=== PATIENT | male | born 1975 | race Caucasian/White ===

== ENCOUNTER 2018-07-26 16:51 | Observation (INO) ==
[2018-07-26] MEDS ORDERED: Bisacodyl 10 MG Supp RECTAL PRN (19:07)
[2018-07-26] MEDS ORDERED: Acetaminophen 325 MG Tablet PO PRN (19:07)
[2018-07-26] MEDS ORDERED: Vancomycin Inj 1 GM/200 ML PIGGYBACK IV.SIG SCH (20:00)
[2018-07-26 23:26] LABS: Bilirubin,Urine Negative (Negative); Clarity,Urine Clear (Clear); Color,Urine Yellow (Yellw/Straw); Glucose,Urine (UA) Negative (Negative); Leukocyte Esterase,Urine Negative (Negative); Nitrite,Urine Negative (Negative); Specific Gravity,Urine 1.015 (1.002-1.035); Urobilinogen,Urine 0.2 mg/dL (Less than 2)
[2018-07-26 23:28] LABS: Hematocrit 23.8 % (39.0-51.0); Hemoglobin 8.6 gm/dL (13.0-17.0)
[2018-07-26 23:34] LABS: RBC,Urine 0-3 /hpf (0-3); Squamous Epithelial Cell,Urine 0-5 /hpf (0-5); WBC,Urine 0-5 /hpf (0-5)
[2018-07-26] MEDS: Sod Chloride 0.9% Inj 1,000 ML IV.CONT SCH (23:34)
[2018-07-27] MEDS: Piperacil/Tazo 4.5 GM Premix 4.5 GM/100 ML BAG IV.SIG SCH ×4 (00:15→20:03)
[2018-07-27] MEDS: Vancomycin Inj 1,000 MG in Sodium Chlor 0.9% Inj 250 ML IV.SIG SCH (01:02)
[2018-07-27 05:04] LABS: Baso # (Auto) 0.2 th/mm3 (0.0-0.2); Baso % (Auto) 1.7 % (0.0-2.0); Eos # (Auto) 0.2 th/mm3 (0.0-0.4); Eos % (Auto) 1.8 % (0.0-4.0); Hematocrit 22.1 % (39.0-51.0); Hemoglobin 7.9 gm/dL (13.0-17.0); Lymph # (Auto) 3.9 th/mm3 (1.0-4.8); Lymph % (Auto) 33.4 % (9.0-44.0); Mean Corpuscular HGB Conc 35.6 % (32.0-36.0); Mean Corpuscular Hemoglobin 31.8 pg (27.0-34.0); Mean Corpuscular Volume 89.1 fL (80.0-100.0); Mean Platelet Volume 8.5 fL (7.0-11.0); Mono # (Auto) 0.7 th/mm3 (0.0-0.9); Mono % (Auto) 5.8 % (0.0-8.0); Neut # (Auto) 6.6 th/mm3 (1.8-7.7); Neut % (Auto) 57.3 % (16.0-70.0); Platelet Count 216 th/mm3 (150-450); Red Blood Count 2.48 mil/mm3 (4.50-5.90); Red Cell Distribution Width 12.3 % (11.6-17.2); White Blood Count 11.6 th/mm3 (4.0-11.0)
[2018-07-27 05:17] LABS: Potassium 3.2 meq/L (3.5-5.1)
[2018-07-27 05:25] LABS: Calcium 7.3 mg/dL (8.5-10.1); Carbon Dioxide 30.8 meq/L (21.0-32.0); Magnesium 2.1 mg/dL (1.5-2.5)
[2018-07-27 05:37] LABS: Total Protein 5.3 g/dL (6.4-8.2)
[2018-07-27] MEDS: Sod Chloride 0.9% Inj 1,000 ML IV.CONT SCH ×2 (05:42→19:27)
--- NOTE | 2018-07-27 07:45 | P.HP ---
History of Present Illness Primary Care Physician: UNKNOWN Chief Complaint: Black stools History of Present Illness: This is a 43-year-old male patient with no known medical history who presented to the ED with complaints of black stools x3 episodes at home. Patient states that over the course of the weekend he noticed his bowel movements were dark in color black he also admitted to intermittent dizziness throughout the weekend as well. Denies any recent illness including fever, chills, cough, headache, abdominal pain, nausea, vomiting, diarrhea or dysuria. Denies any recent NSAID use. His appetite has been good. He does have a history of tobacco abuse, as well as his tox screen positive for opiates and cocaine. He states that this activity is social. Denies any IV drug abuse. Patient denies ever having a previous colonoscopy or EGD. Does not follow with the PCP. Does not take any medications at home. No drug allergies. No prior surgery. - Diagnosis (1) Upper GI bleed (2) GI bleed Inpatient Certification: I certify that the inpatient services were ordered in accordance with Medicare regulations governing the order. This includes certification that hospital inpatient services are reasonable and necessary and in the case of services not specified as inpatient-only under 42 CFR 419.22(n), that they are appropriately provided as inpatient services in accordance to with the 2-midnight benchmark under 43 CFR 412.3(e) Review of Systems All other systems reviewed negative except as stated in HPI [facility] - History History Provided By: Patient, Family Member - Medical History Medical History: Medical History (Last Reviewed 07/27/18 @ 08:54 by Adrianne De La Torre) Patient denies medical problems - Surgical History Surgical History: Surgical History (Last Reviewed 07/27/18 @ 08:54 by Adrianne De La Torre) No history of previous surgery - Family History Family History: Family History (Last Updated 07/27/18 @ 08:58 by Adrianne De La Torre) Other Family history in first degree relatives is unremarkable - Social History I have reviewed the patient's Social History: Yes - Tobacco History Second Hand Smoke Exposure: Yes Tobacco Use In Past 30 Days: Yes Smoking Status: Current every day smoker Tobacco Type: Cigarettes - Alcohol History How Often Do You Have a Drink Containing Alcohol: Never - Substance Use History Substance History: Past History - Immunization History Tetanus Immunization: Never Vaccinated Hx Influenza Vaccine This Season: Yes Medications and Allergies Active Medications: Active Medications Acetaminophen (Tylenol) 650 mg PO Q4H PRN PRN Reason: Temp > 100.4 Al Hydroxide/Mg Hydroxide (Milk Of Magnesia Liq) 30 ml PO Q12H PRN PRN Reason: Mild Constipation Bisacodyl (Dulcolax Supp) 10 mg RECTAL DAILY PRN PRN Reason: SEVERE CONSITIPATION Sodium Chloride (Ns Inj) 1,000 mls @ 100 mls/hr IV.CONT .Q10H [facility] Last Admin: 07/27/18 05:42 Dose: 100 mls/hr Piperacillin/Tazobactam/Dextrose (Zosyn 4.5 Gm Premix) 4.5 gm in 100 mls @ 200 mls/hr IV.SIG Q6H [facility] Last Infusion: 07/27/18 06:04 Dose: Infused Vancomycin HCl 1,000 mg/ (Sodium Chloride) 250 mls @ 250 mls/hr IV.SIG Q24H [facility] Last Infusion: 07/27/18 02:02 Dose: Infused Potassium Chloride (Kcl 20 Meq Premix Inj) 20 meq in 100 mls @ 50 mls/hr IV.SIG ONCE ONE Stop: 07/27/18 09:59 Sodium Chloride (Ns Inj) 250 mls @ 15 mls/hr IV.SIG ONCE MATT Stop: 07/28/18 00:39 Pantoprazole Sodium 80 mg/ (Sodium Chloride) 100 mls @ 10 mls/hr IV.CONT CONT MATT Lactulose (Lactulose Liq) 30 ml PO DAILY PRN PRN Reason: SEVERE CONSITIPATION Octreotide Acetate (Sandostatin Inj) 50 mcg IV.PUSH ONCE ONE Stop: 07/27/18 09:01 Ondansetron HCl (Zofran Inj) 4 mg IV.PUSH Q6H PRN PRN Reason: NAUSEA OR VOMITING Sennosides (Senokot) 17.2 mg PO Q12H PRN PRN Reason: Moderate Constipation Allergies Allergy/AdvReac Type Severity Reaction Status Date / Time No Known Allergies Allergy Verified 07/26/18 16:59 Home Medications Medication Instructions Recorded Confirmed Type No Known Home Medications 07/24/18 07/26/18 History Exam Vital signs: Vital Signs 07/26/18 19:07 07/26/18 19:15 07/26/18 23:39 Temperature Pulse Rate 66 90 Respiratory Rate 22 Blood Pressure Pulse Oximetry 95 10/08/18 00:00 07/27/18 00:42 07/27/18 04:00 Temperature 98.5 F 98.7 F Pulse Rate 79 77 Respiratory Rate 20 Blood Pressure 91/49 L 99/60 L Pulse Oximetry 91 L 91 L 94 L Intake & Output 07/26/18 07/27/18 07/27/18 18:59 06:59 18:59 Intake Total 1332 / 1332 Output Total 800 / 800 Balance 532 / 532 Weight 67.9 kg Intake: IV 1302 / 1302 NS Inj 1,000 ML @ 100 mls/hr IV 852 / 852 .CONT .Q10H [facility] Rx#:[id number] Zosyn 4.5 GM Premix 4.5 gm In 200 / 200 100 ml @ 200 mls/hr IV.SIG Q6H [facility] Rx#:[id number] Vancomycin Inj 1,000 MG In NS 250 / 250 Inj 250 ML @ 250 mls/hr IV.SIG Q24H [facility] Rx#:[id number] Oral 30 / 30 Output: Urine 800 / 800 Other: Weight On Admission 67.9 kg Narrative: GENERAL: Well-developed, well-nourished patient in [facility]. SKIN: Warm and dry. No rash. HEAD: Normocephalic. Atraumatic. EYES: Pupils equal and round. No scleral icterus. No injection or drainage. ENT: No nasal bleeding or discharge. Mucous membranes pink and moist. NECK: Supple. Trachea midline. CARDIOVASCULAR: Regular rate and rhythm. S1, S2 noted. No murmur appreciated. RESPIRATORY: No accessory muscle use. Clear to auscultation. Breath sounds equal bilaterally. GASTROINTESTINAL: Abdomen soft, non-tender, nondistended. Normoactive bowel sounds x4. MUSCULOSKELETAL: No obvious deformities. Extremities without clubbing, cyanosis , or edema. NEUROLOGICAL: Awake and alert. No obvious cranial nerve deficits. Motor grossly within normal limits. 5/5 muscle strength in bilateral upper and lower extremities. Normal speech. PSYCHIATRIC: Appropriate mood and affect; insight and judgment normal. Results - Labs CBC & Chem 7: 07/27/18 04:42 07/27/18 04:42 Labs: Laboratory Results - last 24 hr 07/26/18 07/26/18 07/26/18 23:20 23:20 23:20 CBC w Diff WBC RBC Hgb 8.6 L Hct 23.8 L MCV MCH MCHC RDW Plt Count MPV Neut % (Auto) Lymph % (Auto) [place] % (Auto) Eos % (Auto) Baso % (Auto) Neut # (Auto) Lymph # (Auto) [place] # (Auto) Eos # (Auto) Baso # (Auto) WBC Differential Differential Comment Sodium Potassium Chloride Carbon Dioxide Anion Gap BUN Creatinine Estimated GFR Random Glucose Lactic Acid 1.0 Calcium Prot Corrected Calcium Magnesium Total Protein Urine Color Yellow Urine Clarity Clear Urine pH 6.0 Ur Specific [place] 1.015 Urine Protein Negative Urine Glucose (UA) Negative Urine Ketones Negative Urine Occult Blood Negative Urine Nitrate Negative Urine Bilirubin Negative Urine Urobilinogen 0.2 Ur Leukocyte Esterase Negative Urine RBC 0-3 Urine WBC 0-5 Ur Squamous Epith Cells 0-5 Micro UA Comment Culture not ind Ur Microscopic Review Microscopic reviewed Urine Culture Comments Culture not ind 07/27/18 07/27/18 04:42 04:42 CBC w Diff Auto diff final WBC 11.6 H RBC 2.48 L Hgb 7.9 L Hct 22.1 L MCV 89.1 MCH 31.8 MCHC 35.6 RDW 12.3 Plt Count 216 MPV 8.5 Neut % (Auto) 57.3 Lymph % (Auto) 33.4 [place] % (Auto) 5.8 Eos % (Auto) 1.8 Baso % (Auto) 1.7 Neut # (Auto) 6.6 Lymph # (Auto) 3.9 [place] # (Auto) 0.7 Eos # (Auto) 0.2 Baso # (Auto) 0.2 WBC Differential . Differential Comment . Sodium 138 Potassium 3.2 L Chloride 98 Carbon Dioxide 30.8 Anion Gap 9 BUN 22 H Creatinine 1.00 Estimated GFR 82 L Random Glucose 95 Lactic Acid Calcium 7.3 L* D Prot Corrected Calcium 8.3 L Magnesium 2.1 Total Protein 5.3 L D Urine Color Urine Clarity Urine pH Ur Specific [place] Urine Protein Urine Glucose (UA) Urine Ketones Urine Occult Blood Urine Nitrate Urine Bilirubin Urine Urobilinogen Ur Leukocyte Esterase Urine RBC Urine WBC Ur Squamous Epith Cells Micro UA Comment Ur Microscopic Review Urine Culture Comments Caprini VTE Risk Assessment Caprini VTE Risk Assessment: No/Low Risk (score <= 1) Caprini Risk Assessment Model: Point Value = 1 Point Value = 2 Point Value = 3 Point Value = 5 Age 41-60 Minor surgery BMI > 25 kg/m2 Swollen legs Varicose veins or History of unexplained or recurrent spontaneous Oral contraceptives or hormone replacement Sepsis (< 1 month) Serious lung disease, including pneumonia (< 1 month) Abnormal pulmonary function Acute myocardial infarction Congestive heart failure (< 1 month) History of inflammatory bowel disease Medical patient at bed rest Age 61-74 Arthroscopic surgery Major open surgery (> 45 min) Laparoscopic surgery (> 45 min) Malignancy Confined to bed (> 72 hours) Immobilizing plaster cast Central venous access Age >= 75 History of VTE Family history of VTE Factor V Leiden Prothrombin [id number] Lupus anticoagulant Anticardiolipin antibodies Elevated serum homocysteine Heparin-induced thrombocytopenia Other congenital or acquired thrombophilia Stroke (< 1 month) Elective arthroplasty Hip, pelvis, or leg fracture Acute spinal cord injury (< 1 month) Prophylaxis Regimen: Total Risk Factor Score Risk Level Prophylaxis Regimen 0-1 Low Early ambulation 2 Moderate Order ONE of the following: *Sequential Compression Device (SCD) *Heparin 5000 units SQ BID 3-4 Higher Order ONE of the following medications: *Heparin 5000 units SQ TID *Enoxaparin/Lovenox 40 mg SQ daily (WT < 150 kg, CrCl > 30 mL/min) *Enoxaparin/Lovenox 30 mg SQ daily (WT < 150 kg, CrCl > 10-29 mL/min) *Enoxaparin/Lovenox 30 mg SQ BID (WT < 150 kg, CrCl > 30 mL/min) AND/OR *Sequential Compression Device (SCD) 5 or more Highest Order ONE of the following medications: *Heparin 5000 units SQ TID (Preferred with Epidurals) *Enoxaparin/Lovenox 40 mg SQ daily (WT < 150 kg, CrCl > 30 mL/min) *Enoxaparin/Lovenox 30 mg SQ daily (WT < 150 kg, CrCl > 10-29 mL/min) *Enoxaparin/Lovenox 30 mg SQ BID (WT < 150 kg, CrCl > 30 mL/min) AND *Sequential Compression Device (SCD) Assessment and Plan - Assessment (1) Upper GI bleed Code(s): K92.2 - Gastrointestinal hemorrhage, unspecified Status: Acute (2) GI bleed Code(s): K92.2 - Gastrointestinal hemorrhage, unspecified Status: Acute - Plan This is a 43-year-old male patient with: GI bleed -Patient reports black stools times 2 days. Admits to some intermittent dizziness which has resolved now. -Hemoccult positive in ED. No further bowel movement since yesterday morning. -Abdominal/pelvis CT reviewed and negative for any acute disease. -Gastroenterology consulted, spoke with him this morning, plan will be for EGD this afternoon. Keep NPO. Continue IVF. -Patient placed on Protonix drip. Octreotide x 50 mcg sq 1 given. -Monitor for any active bleeding. -Trend H&H. Dropped overnight. Will transfuse 1 unit PRBC this morning. SIRS -Patient presented with leukocytosis of 21,000, tachycardia with lactic acid 2.2. UA negative. CXR reviewed and negative for any acute disease. Blood cultures pending, follow. -Will continue on Zosyn and Vanco IV. Leukocytosis improved today. No fever overnight. -BP is labile. Was given 1 L NS bolus and continued on IVF overnight. Will continue to monitor. -Patient is asymptomatic and denies any complaints at home including dysuria, cough, or diarrhea. Hypokalemia: K 3.2 today. Replenish as ordered. Follow BMP. Tobacco abuse: Encouraged cessation. Nicotine patch. Substance abuse: Tox screen positive for opiates and cocaine. Encouraged cessation. DVT Prophylaxis: SCDs. Hold chemical prophylaxis secondary to GI bleed.
[2018-07-27] MEDS ORDERED: Sodium Chlor 0.9% Inj 250 ML IV.SIG SCH (08:00)
[2018-07-27] MEDS ORDERED: Potassium Chlor 20 mEq Premix 20 MEQ/100 ML PIGGYBACK IV.SIG ONE (08:00)
[2018-07-27] MEDS ORDERED: Octreotide Inj 50 MCG/ML Vial IV.PUSH ONE ×2 (08:00→09:00)
[2018-07-27 08:16] LABS: Albumin 2.6 g/dL (3.4-5.0)
[2018-07-27 08:21] LABS: Total Protein 5.2 g/dL (6.4-8.2)
[2018-07-27] MEDS ORDERED: Pantoprazole Inj 80 MG in Sodium Chlor 0.9% Inj 100 ML IV.CONT SCH (09:00)
[2018-07-27] MEDS ORDERED: Pantoprazole Inj 40 MG Vial IV.PUSH SCH (09:00)
[2018-07-27 11:25] LABS: Hematocrit 21.4 % (39.0-51.0); Hemoglobin 7.6 gm/dL (13.0-17.0)
[2018-07-27 11:46] LABS: Activated Partial Thrombo Time 24.6 sec (24.3-30.1); Prothrombin Time 10.4 sec (9.8-11.6)
--- NOTE | 2018-07-27 16:12 | GIPROC ---
[facility] [address] [place] [address], [id number] EGD PROCEDURE REPORT EXAM DATE: 07/27/2018 PATIENT NAME: Tamir Snyder MR #: [id number] BIRTHDATE: 1975 ATTENDING: Axel Chapa MD ORDER #: [id number] PROCESS IMPROVEMENT ANALYST: Carina Sheehan Wilcox-Hassen, Alice, and Jamee Ureña STATUS: inpatient INDICATIONS: The patient is a 43 yr old male here for an EGD due to epigastric abdominal pain, melena, and acute post hemorrhagic anemia PROCEDURE PERFORMED: EGD w/ directed submucosal injection(s), any substance EGD w/ control of bleeding EGD w/ biopsy MEDICATIONS: None and Per Anesthesia. TOPICAL ANESTHETIC: none CONSENT: The patient understands the risks and benefits of the procedure and understands that these risks include, but are not limited to: sedation, allergic reaction, infection, perforation and/or bleeding. Alternative means of evaluation and treatment include, among others: physical exam, x-rays, and/or surgical intervention. The patient elects to proceed with this endoscopic procedure. medical equipment was checked for proper function. Hand hygiene and appropriate measures for infection prevention was taken. After the risks, benefits and alternatives of the procedure were thoroughly explained, Informed consent was verified, confirmed and timeout was successfully executed by the treatment team. The patient was anesthetized with topical anesthesia and the EC-[id number] (Pedi C) endoscope was introduced through the mouth and advanced to the second portion of the duodenum. Retroflexed views revealed no abnormalities The gastroscope was then slowly withdrawn and removed. ESOPHAGUS: There was LA Class C esophagitis noted. Multiple biopsies were performed. STOMACH: There was mild antral gastropathy noted. Cold forcep biopsies were taken at the antrum and angularis. DUODENUM: A medium sized non-bleeding non-bleeding, round and shallow ulcer with a red spot was found. Hemostasis was attempted by placing a single [place] hemoclip on the bleeding site(s). Submucosal injection of 2ml of epinephrine 1:10,000 was performed around the bleeding site. The duodenal mucosa appeared normal in the 2nd part of the duodenum. ADVERSE EVENTS: There were no complications. IMPRESSIONS: 1. There was LA Class C esophagitis noted; multiple biopsies were performed 2. There was mild antral gastropathy noted [T2] 3. Medium sized non-bleeding ulcer was found; Hemostasis was attempted by placing a single hemoclip on the bleeding site(s); Submucosal injection of 2ml of epinephrine 1:10,000 was performed around the bleeding site 4. Normal duodenal mucosa in the 2nd part of the duodenum 5. Retroflexed views revealed no abnormalities RECOMMENDATIONS: Await biopsy results. Biopsy results will not be ready for 7-10 days. If you don't hear from us in two weeks, call our office for biopsy results. PATIENT CONDITION: stable DISPOSITION: Inpatient REPEAT EXAM: Return 3 months EGD Axel Chapa MD eSigned: Axel Chapa MD 07/27/2018 4:11 PM cc: PATIENT NAME: Tamir Snyder MR#: [id number]
--- NOTE | 2018-07-27 16:36 | P.CONGI ---
History of Present Illness Chief complaint: GI Bleed, rule out sepsis, rule out drug use History of Present Illness: Patient is a 43-year-old male who was admitted to the hospital through the ER with history of having recurrent black stools since last . This was in the form of black tarry stools. He denied any history of hematemesis or hematochezia. He reports being lightheaded however denied any syncope chest pain palpitations shortness of breath. On direct questioning he gives history of intermittent heartburn however there is no history of dysphagia nausea vomiting constipation diarrhea jaundice ascites edema anorexia or weight loss. Review of Systems Gastrointestinal: Reports abdominal pain, Reports black, tarry stools PMFSH - History History Provided By: Patient, Family Member - Medical History Medical History: Medical History (Last Reviewed 07/27/18 @ 08:54 by Adrianne De La Torre) Patient denies medical problems - Surgical History Surgical History: Surgical History (Last Reviewed 07/27/18 @ 08:54 by Adrianne De La Torre) No history of previous surgery - Family History Family History: Family History (Last Updated 07/27/18 @ 08:58 by Adrianne De La Torre) Other Family history in first degree relatives is unremarkable - Tobacco History Second Hand Smoke Exposure: Yes Tobacco Use In Past 30 Days: Yes Smoking Status: Current every day smoker Tobacco Type: Cigarettes - Alcohol History How Often Do You Have a Drink Containing Alcohol: Never - Substance Use History Substance History: Past History - Immunization History Tetanus Immunization: Never Vaccinated Hx Influenza Vaccine This Season: Yes Medications and Allergies Active Medications: Active Medications Acetaminophen (Tylenol) 650 mg PO Q4H PRN PRN Reason: Temp > 100.4 Al Hydroxide/Mg Hydroxide (Milk Of [place] Liq) 30 ml PO Q12H PRN PRN Reason: Mild Constipation Bisacodyl (Dulcolax Supp) 10 mg RECTAL DAILY PRN PRN Reason: SEVERE CONSITIPATION Sodium Chloride (Ns Inj) 1,000 mls @ 100 mls/hr IV.CONT .Q10H [facility] Last Admin: 07/27/18 05:42 Dose: 100 mls/hr Piperacillin/Tazobactam/Dextrose (Zosyn 4.5 Gm Premix) 4.5 gm in 100 mls @ 200 mls/hr IV.SIG Q6H [facility] Last Infusion: 07/27/18 06:04 Dose: Infused Vancomycin HCl 1,000 mg/ (Sodium Chloride) 250 mls @ 250 mls/hr IV.SIG Q24H [facility] Last Infusion: 07/27/18 02:02 Dose: Infused Sodium Chloride (Ns Inj) 250 mls @ 15 mls/hr IV.SIG ONCE MATT Stop: 07/28/18 00:39 Last Admin: 07/27/18 09:04 Dose: 15 mls/hr Lactulose (Lactulose Liq) 30 ml PO DAILY PRN PRN Reason: SEVERE CONSITIPATION Nicotine (Habitrol 14 Mg Patch.24 Hr) 1 patch T-DERMAL DAILY [facility]ATT Last Admin: 07/27/18 10:38 Dose: 1 patch Ondansetron HCl (Zofran Inj) 4 mg IV.PUSH Q6H PRN PRN Reason: NAUSEA OR VOMITING Pantoprazole Sodium (Protonix) 40 mg PO BID MATT Patch Removal (Remove Old Patch) 1 each T-DERMAL HS MATT Sennosides (Senokot) 17.2 mg PO Q12H PRN PRN Reason: Moderate Constipation Allergies Allergy/AdvReac Type Severity Reaction Status Date / Time No Known Allergies Allergy Verified 07/26/18 16:59 Home Medications Medication Instructions Recorded Confirmed Type No Known Home Medications 07/24/18 07/26/18 History Exam Vital signs: Vital Signs 07/26/18 19:07 07/26/18 19:15 07/26/18 23:39 Temperature Pulse Rate 66 90 Respiratory Rate 22 Blood Pressure Pulse Oximetry 95 07/27/18 00:00 07/27/18 00:42 07/27/18 04:00 Temperature 98.5 F 98.7 F Pulse Rate 79 77 Respiratory Rate 20 Blood Pressure 91/49 L 99/60 L Pulse Oximetry 91 L 91 L 94 L 07/27/18 08:00 07/27/18 08:12 07/27/18 12:52 Temperature Pulse Rate 73 80 Respiratory Rate 15 Blood Pressure 92/56 L 108/68 Pulse Oximetry 94 L 07/27/18 12:53 07/27/18 13:33 07/27/18 13:40 Temperature 99.6 F 99.1 F Pulse Rate 84 84 89 Respiratory Rate 12 20 19 Blood Pressure 107/64 105/72 Pulse Oximetry 95 97 07/27/18 16:07 10/08/18 16:15 Temperature 99.4 F Pulse Rate 73 76 Respiratory Rate 16 16 Blood Pressure 92/59 L 110/76 Pulse Oximetry 95 95 Intake & Output 07/26/18 07/27/18 07/27/18 18:59 06:59 18:59 Intake Total 1332 / 1332 100 / 100 Output Total 800 / 800 Balance 532 / 532 100 / 100 Weight 67.9 kg Intake: IV 1302 / 1302 100 / 100 NS Inj 1,000 ML @ 100 mls/hr IV 852 / 852 .CONT .Q10H [facility] Rx#:[id number] Zosyn 4.5 GM Premix 4.5 gm In 200 / 200 100 ml @ 200 mls/hr IV.SIG Q6H [facility] Rx#:[id number] KCl 20 mEq Premix Inj 20 meq In 100 / 100 100 ml @ 50 mls/hr IV.SIG ONCE ONE Rx#:[id number] Vancomycin Inj 1,000 MG In NS 250 / 250 Inj 250 ML @ 250 mls/hr IV.SIG Q24H [facility] Rx#:[id number] Oral 30 / 30 Intake (Blood Product) Amt 0 / 0 Rbc As-3 Leukoreduced Unit 0 / 0 [id number] Output: Urine 800 / 800 Other: Weight On Admission 67.9 kg - Routine Abdominal Exam Comments: Abdomen soft mild tenderness in the epigastrium. No guarding or rigidity. Liver and spleen not palpable. No ascites. Bowel sounds normal. Results - Labs CBC & Chem 7: 07/27/18 11:15 07/27/18 04:42 Labs: Laboratory Results - last 24 hr 07/26/18 07/26/18 07/26/18 23:20 23:20 23:20 CBC w Diff WBC RBC Hgb 8.6 L Hct 23.8 L MCV MCH MCHC RDW Plt Count MPV Neut % (Auto) Lymph % (Auto) [place] % (Auto) Eos % (Auto) Baso % (Auto) Neut # (Auto) Lymph # (Auto) [place] # (Auto) Eos # (Auto) Baso # (Auto) WBC Differential Differential Comment PT INR APTT Sodium Potassium Chloride Carbon Dioxide Anion Gap BUN Creatinine Estimated GFR Random Glucose Lactic Acid 1.0 Calcium Prot Corrected Calcium Magnesium Total Bilirubin Direct Bilirubin Indirect Bilirubin AST ALT Alkaline Phosphatase Total Protein Albumin Urine Color Yellow Urine Clarity Clear Urine pH 6.0 Ur Specific [place] 1.015 Urine Protein Negative Urine Glucose (UA) Negative Urine Ketones Negative Urine Occult Blood Negative Urine Nitrate Negative Urine Bilirubin Negative Urine Urobilinogen 0.2 Ur Leukocyte Esterase Negative Urine RBC 0-3 Urine WBC 0-5 Ur Squamous Epith Cells 0-5 Micro UA Comment Culture not ind Ur Microscopic Review Microscopic reviewed Urine Culture Comments Culture not ind Blood Type Antibody Screen MTS Gel Crossmatch 07/27/18 07/27/18 07/27/18 04:36 04:42 04:42 CBC w Diff Auto diff final WBC 11.6 H RBC 2.48 L Hgb 7.9 L Hct 22.1 L MCV 89.1 MCH 31.8 MCHC 35.6 RDW 12.3 Plt Count 216 MPV 8.5 Neut % (Auto) 57.3 Lymph % (Auto) 33.4 [place] % (Auto) 5.8 Eos % (Auto) 1.8 Baso % (Auto) 1.7 Neut # (Auto) 6.6 Lymph # (Auto) 3.9 [place] # (Auto) 0.7 Eos # (Auto) 0.2 Baso # (Auto) 0.2 WBC Differential . Differential Comment . PT INR APTT Sodium 138 Potassium 3.2 L Chloride 98 Carbon Dioxide 30.8 Anion Gap 9 BUN 22 H Creatinine 1.00 Estimated GFR 82 L Random Glucose 95 Lactic Acid Calcium 7.3 L* D Prot Corrected Calcium 8.3 L Magnesium 2.1 Total Bilirubin Direct Bilirubin Indirect Bilirubin AST ALT Alkaline Phosphatase Total Protein 5.3 L D Albumin Urine Color Urine Clarity Urine pH Ur Specific [place] Urine Protein Urine Glucose (UA) Urine Ketones Urine Occult Blood Urine Nitrate Urine Bilirubin Urine Urobilinogen Ur Leukocyte Esterase Urine RBC Urine WBC Ur Squamous Epith Cells Micro UA Comment Ur Microscopic Review Urine Culture Comments Blood Type O Positive Antibody Screen Negative MTS Gel Crossmatch See Detail 07/27/18 07/27/18 07/27/18 08:00 11:15 11:15 CBC w Diff WBC RBC Hgb 7.6 L Hct 21.4 L MCV MCH MCHC RDW Plt Count MPV Neut % (Auto) Lymph % (Auto) [place] % (Auto) Eos % (Auto) Baso % (Auto) Neut # (Auto) Lymph # (Auto) [place] # (Auto) Eos # (Auto) Baso # (Auto) WBC Differential Differential Comment PT 10.4 INR 1.0 APTT 24.6 Sodium Potassium Chloride Carbon Dioxide Anion Gap BUN Creatinine Estimated GFR Random Glucose Lactic Acid Calcium Prot Corrected Calcium Magnesium Total Bilirubin 0.5 Direct Bilirubin 0.2 Indirect Bilirubin 0.3 AST 12 L ALT 20 Alkaline Phosphatase 45 Total Protein 5.2 L Albumin 2.6 L D Urine Color Urine Clarity Urine pH Ur Specific [place] Urine Protein Urine Glucose (UA) Urine Ketones Urine Occult Blood Urine Nitrate Urine Bilirubin Urine Urobilinogen Ur Leukocyte Esterase Urine RBC Urine WBC Ur Squamous Epith Cells Micro UA Comment Ur Microscopic Review Urine Culture Comments Blood Type Antibody Screen MTS Gel Crossmatch Assessment and Plan (1) Upper GI bleed Status: Acute Code(s): K92.2 - Gastrointestinal hemorrhage, unspecified - Plan 1. EGD 2. IV Protonix drip 3. Transfuse 1 unit of packed red blood cells 4. Check hemoglobin every 6 hours
[2018-07-28] MEDS: Piperacil/Tazo 4.5 GM Premix 4.5 GM/100 ML BAG IV.SIG SCH ×2 (00:23→06:33)
[2018-07-28] MEDS: Vancomycin Inj 1,000 MG in Sodium Chlor 0.9% Inj 250 ML IV.SIG SCH (01:53)
[2018-07-28] MEDS ORDERED: Sod Chloride 0.9% Inj 1,000 ML IV.SIG SCH (02:27)
[2018-07-28] MEDS: Sod Chloride 0.9% Inj 1,000 ML IV.CONT SCH (02:32)
[2018-07-28 04:57] LABS: Baso # (Auto) 0.1 th/mm3 (0.0-0.2); Eos # (Auto) 0.2 th/mm3 (0.0-0.4); Eos % (Auto) 1.8 % (0.0-4.0); Hematocrit 24.1 % (39.0-51.0); Hemoglobin 8.3 gm/dL (13.0-17.0); Lymph # (Auto) 3.3 th/mm3 (1.0-4.8); Lymph % (Auto) 32.3 % (9.0-44.0); Mean Corpuscular HGB Conc 34.4 % (32.0-36.0); Mean Corpuscular Hemoglobin 30.5 pg (27.0-34.0); Mean Corpuscular Volume 88.8 fL (80.0-100.0); Mean Platelet Volume 8.7 fL (7.0-11.0); Mono # (Auto) 0.6 th/mm3 (0.0-0.9); Mono % (Auto) 6.2 % (0.0-8.0); Neut # (Auto) 6.1 th/mm3 (1.8-7.7); Neut % (Auto) 58.7 % (16.0-70.0); Platelet Count 248 th/mm3 (150-450); Red Blood Count 2.72 mil/mm3 (4.50-5.90); Red Cell Distribution Width 12.7 % (11.6-17.2); White Blood Count 10.3 th/mm3 (4.0-11.0)
[2018-07-28] MEDS ORDERED: Sodium Chlor 0.9% Inj 500 ML IV.SIG SCH (05:00)
[2018-07-28 05:14] LABS: Calcium 6.9 mg/dL (8.5-10.1); Potassium 3.4 meq/L (3.5-5.1)
[2018-07-28 05:27] LABS: Total Protein 5.2 g/dL (6.4-8.2)
[2018-07-28 09:42] VITALS: TEMP 99.1
[2018-07-28 11:14] VITALS: BP 101/69; PULSE 88; RESP 19; O2SAT 98
--- NOTE | 2018-07-28 12:29 | P.PN ---
Subjective Interval history: 43-year-old male who is seen and examined today for follow-up on GI bleed. Patient is doing much better. Denies any pain. Hemoglobin has had improvement. No other signs of acute bleeding. Vital signs are stable. Patient remains afebrile. Physical Exam Vital signs: Vital Signs 07/27/18 12:52 07/27/18 12:53 07/27/18 13:33 Temperature 99.6 F Pulse Rate 84 84 Respiratory Rate 12 20 Blood Pressure 108/68 107/64 Pulse Oximetry 95 07/27/18 13:40 07/27/18 16:07 07/27/18 16:15 Temperature 99.1 F 99.4 F Pulse Rate 89 73 76 Respiratory Rate 19 16 16 Blood Pressure 105/72 92/59 L 110/76 Pulse Oximetry 97 95 95 07/27/18 16:30 07/27/18 19:20 07/27/18 20:00 Temperature 99.7 F H Pulse Rate 78 102 H Respiratory Rate 16 28 H Blood Pressure 100/65 114/66 Pulse Oximetry 95 94 L 98 07/28/18 00:00 07/28/18 02:15 07/28/18 02:19 Temperature 98.8 F Pulse Rate 84 76 74 Respiratory Rate 15 18 20 Blood Pressure 100/65 71/37 L 76/55 L Pulse Oximetry 97 98 97 07/28/18 02:20 07/28/18 02:58 07/28/18 03:21 Temperature Pulse Rate 76 64 62 Respiratory Rate 18 16 16 Blood Pressure 76/46 L 81/47 L 87/46 L Pulse Oximetry 98 96 97 07/28/18 03:53 07/28/18 04:00 07/28/18 06:14 Temperature Pulse Rate 64 72 Respiratory Rate 18 18 Blood Pressure 82/51 L 96/64 L Pulse Oximetry 96 98 98 07/28/18 07:00 07/28/18 08:00 07/28/18 08:04 Temperature Pulse Rate 86 94 H Respiratory Rate 17 Blood Pressure 104/55 L Pulse Oximetry 93 L 07/28/18 09:00 07/28/18 09:19 07/28/18 11:08 Temperature 99.1 F Pulse Rate 94 H 88 Respiratory Rate 25 H 19 Blood Pressure 98/59 L 101/69 Pulse Oximetry 98 Intake & Output 07/27/18 07/28/18 07/28/18 18:59 06:59 18:59 Intake Total 1979 2950 / 2950 100 / 100 Output Total 600 / 600 Balance 1979 2350 / 2350 100 / 100 Weight 70.7 kg Intake: IV 1100 / 1100 2950 / 2950 100 / 100 NS Inj 1,000 ML @ 100 mls/hr IV 1000 / 1000 1000 / 1000 .CONT .Q10H MATT Rx#:[id number] Zosyn 4.5 GM Premix 4.5 gm In 200 / 200 100 / 100 100 ml @ 200 mls/hr IV.SIG Q6H MATT Rx#:[id number] KCl 20 mEq Premix Inj 20 meq In 100 / 100 100 ml @ 50 mls/hr IV.SIG ONCE ONE Rx#:[id number] NS Inj 1,000 ML @ Wide Open IV. 1000 / 1000 SIG BOLUS MATT Rx#:[id number] NS Inj 500 ML @ Wide Open IV. 500 / 500 SIG BOLUS MATT Rx#:[id number] Vancomycin Inj 1,000 MG In NS 250 / 250 Inj 250 ML @ 250 mls/hr IV.SIG Q24H MATT Rx#:[id number] Oral 480 / 480 Intake (Blood Product) Amt 400 / 400 Rbc As-3 Leukoreduced Unit 400 / 400 [id number] Output: Urine 600 / 600 Other: # Voids 3 Date of Last Bowel Movement 07/27/18 07/27/18 # Bowel Movements 2 Narrative: GENERAL: Well-developed, well-nourished, in no acute distress. alert and orientated HEENT: Head is normocephalic without any lesions or masses noted. Facial features are symmetric. Eyes: Extraocular muscles are intact. Conjunctivae were clear. NECK: Supple without any masses. Trachea midline no deviation. No JVD, CARDIAC: Regular rhythm, regular rate. S1/S2 are heard. No murmurs gallops or rubs. LUNGS: Clear to auscultation bilaterally. No wheeze, rhonchi or rales. No use of accessory muscles on inspiration or expiration. ABDOMEN: Soft, nontender. Nondistended. Bowel sounds heard in all 4 quadrants. No organomegaly or masses. Negative rebound, negative guarding EXTREMITIES: No edema, pulses are equal bilaterally. No cyanosis or clubbing NEUROLOGY: Mood and affect appear appropriate. Cranial nerves II through XII grossly intact. Moving all extremities, speech is clear Results - Labs CBC & Chem 7: 07/28/18 04:08 07/28/18 04:08 Laboratory Results - last 24 hr 07/27/18 07/28/18 07/28/18 04:36 04:08 04:08 CBC w Diff Auto diff final WBC 10.3 RBC 2.72 L Hgb 8.3 L Hct 24.1 L MCV 88.8 MCH 30.5 MCHC 34.4 RDW 12.7 Plt Count 248 MPV 8.7 Neut % (Auto) 58.7 Lymph % (Auto) 32.3 Peach % (Auto) 6.2 Eos % (Auto) 1.8 Baso % (Auto) 1.0 Neut # (Auto) 6.1 Lymph # (Auto) 3.3 Peach # (Auto) 0.6 Eos # (Auto) 0.2 Baso # (Auto) 0.1 WBC Differential . Differential Comment . Sodium 143 Potassium 3.4 L Chloride 108 H D Carbon Dioxide 29.0 Anion Gap 6 BUN 17 Creatinine 1.00 Estimated GFR 82 L Random Glucose 94 Lactic Acid Calcium 6.9 L* Prot Corrected Calcium 7.9 L Total Protein 5.2 L Blood Type O Positive Antibody Screen Negative MTS Gel Crossmatch See Detail 07/28/18 04:08 CBC w Diff WBC RBC Hgb Hct MCV MCH MCHC RDW Plt Count MPV Neut % (Auto) Lymph % (Auto) Peach % (Auto) Eos % (Auto) Baso % (Auto) Neut # (Auto) Lymph # (Auto) Peach # (Auto) Eos # (Auto) Baso # (Auto) WBC Differential Differential Comment Sodium Potassium Chloride Carbon Dioxide Anion Gap BUN Creatinine Estimated GFR Random Glucose Lactic Acid 0.7 Calcium Prot Corrected Calcium Total Protein Blood Type Antibody Screen MTS Gel Crossmatch - Procedures EGD w/ directed submucosal injection(s), any substance EGD w/ control of bleeding EGD w/ biopsy IMPRESSIONS: 1. There was LA Class C esophagitis noted; multiple biopsies were performed 2. There was mild antral gastropathy noted [T2] 3. Medium sized non-bleeding ulcer was found; Hemostasis was attempted by placing a single hemoclip on the bleeding site(s); Submucosal injection of 2ml of epinephrine 1:10,000 was performed around the bleeding site 4. Normal duodenal mucosa in the 2nd part of the duodenum 5. Retroflexed views revealed no abnormalities Assessment and Plan - Assessment (1) Upper GI bleed Code(s): K92.2 - Gastrointestinal hemorrhage, unspecified Status: Acute (2) GI bleed Code(s): K92.2 - Gastrointestinal hemorrhage, unspecified Status: Acute - Plan GI bleed -Patient presented with melena for 2 days with associated lightheaded dizziness , resolved -Abdominal/pelvis CT reviewed and negative for any acute disease. -Hemoglobin was monitored, transfuse if hemoglobin below 8.0 -Patient received 1 unit of packed red blood cells -Gastroenterology consulted, patient did undergo EGD -Patient initially started on Protonix drip and octreotide, currently on Protonix p.o. SIRS, resolved -Patient presented with leukocytosis of 21,000, tachycardia with lactic acid 2.2. UA negative. CXR reviewed and negative for any acute disease. Blood cultures negative for 2 days, follow. -Patient currently on Zosyn and Vanco IV. -Leukocytosis has resolved Hypokalemia: -Continue monitor and replete as needed Tobacco abuse: -Encouraged cessation. -Nicotine patch. Substance abuse: -Tox screen positive for opiates and cocaine. Encouraged cessation. DVT Prophylaxis: -Sequential compression devices. Hold chemical prophylaxis secondary to GI bleed. Discharge Planning: Discharge home in stable condition Activity: Ad marcus. Diet: Regular diet Medication per medication reconciliation Follow-up with primary medical doctor in 1 week
== END 2018-07-28 12:37 | disposition home or self-care (01) ==
LOC: PHEDDLT 16:51 → PHICU 22:43 → INTOOBSV 22:43
PROVIDERS: ADMIT Internal Medicine; ATTEND Internal Medicine